=== PATIENT | male | born 1980 | race Caucasian/White ===

== ENCOUNTER 2016-08-12 16:50 | Emergency (ER) | payer OTHER ==
[~2016-08-12] VITALS: Ht 185.4 cm; Wt 96.4 kg
[~2016-08-12 16:50] MED LIST: ENDOCET 5-3251 EAC1 PO; FLEXERIL10 MG PO; NAPROSYN500 MG PO; NAPROXEN500 MG PO; NOHOMEMEDS; TESSALON200 MG PO; VICODIN 5-3001 EACH PO
[2016-08-12] MEDS ORDERED: LYRICA150 MG PO (17:22)
[2016-08-12] MEDS ORDERED: DULOXETINE HCL60 MG PO (17:22)
[2016-08-12] MEDS ORDERED: BUPROPION XL150 MG PO (17:22)
[2016-08-12] MEDS ORDERED: AMPHETAMINE SAL15 MG PO (17:23)
[2016-08-12] MEDS ORDERED: VITAMIN D31000 UNIT PO (17:23)
[2016-08-12 18:04] LABS: EOSINOPHIL (%) 4.6 % (0-5); EOSINOPHIL COUNT 0.4 K/uL (0-0.3); HEMATOCRIT 46.5 % (38.0-50.0); IMMATURE GRANULOCYTE (%) 0.4 % (0.0-0.7); INSTRUMENT ABS NEUTROPHIL CT 4.9 K/uL; LYMPHOCYTE COUNT 1.6 K/uL (1.0-2.8); MCH 30.7 PG (29.0-34.0); MCHC 33.5 G/DL (30.0-36.0); MCV 91.5 FL (86-99); MEAN PLAT.VOLUME 10.3 uM^3 (9.0-12.4); MONOCYTE (%) 13.5 % (3-12); MONOCYTE COUNT 1.1 K/uL (0-0.8); NEUTROPHIL (%) 61.1 % (45-76); NEUTROPHIL COUNT 4.9 K/uL (1.8-6.4); PLATELET COUNT 302 K/uL (156-360); RBC DIS.WIDTH-CV 12.4 % (11.8-14.6); RBC DIS.WIDTH-SD 41.8 % (39-53); RED BLOOD COUNT 5.08 M/uL (4.00-5.50); WHITE BLOOD COUNT 8.1 K/uL (4.1-10.2)
[2016-08-12 18:16] LABS: CHLORIDE 105 mEq/L (99-109); POTASSIUM 3.7 mEq/L (3.7-5.4); SODIUM 139 mEq/L (136-147)
[2016-08-12 18:17] LABS: GLUCOSE 86 mg/dL (70-99)
[2016-08-12 18:19] LABS: ANION GAP 10 MEQ/L (2-14)
[2016-08-12 18:21] LABS: GFR ESTIMATE (CALCULATED) > 59 mL/min/
[2016-08-12 18:22] LABS: UREA NITROGEN (BUN) 10 mg/dL (9-23)
[2016-08-12] MEDS ORDERED: NORCO 5/3251 TABLET PO (19:27)
[2016-08-12] MEDS ORDERED: LIDOCAINE20 MG/1 M5 PO (19:27)
[2016-08-12 20:31] VITALS: BP 122/75
== END 2016-08-12 20:32 | disposition home or self-care (01) ==
LOC: EME 16:50
PROVIDERS: Physician Assistant
DX: G89.18 Other acute postprocedural pain (principal); M54.2 Cervicalgia; R07.0 Pain in throat; Z87.891 Personal history of nicotine dependence; Z88.1 Allergy status to other antibiotic agents
CPT/HCPCS: 70491; 71020; 80048; 85025; 99281; 99285; J2270; J7040

== ENCOUNTER 2016-11-12 12:32 | Emergency (ER) | payer OTHER ==
[~2016-11-12] VITALS: Ht 185.4 cm; Wt 92.4 kg
[~2016-11-12 12:32] MED LIST changes: +AMPHETAMINE SAL15 MG PO; +BUPROPION XL150 MG PO; +DULOXETINE HCL60 MG PO; +LIDOCAINE20 MG/1 M5 PO; +LYRICA150 MG PO; +NORCO 5/3251 TABLET PO; +VITAMIN D31000 UNIT PO
[2016-11-12 14:01] LABS: HEMATOCRIT 46.2 % (38.0-50.0); MCH 30.4 PG (29.0-34.0); MCHC 33.3 G/DL (30.0-36.0); MCV 91.1 FL (86-99); PLATELET COUNT 315 K/uL (156-360); RBC DIS.WIDTH-CV 12.3 % (11.8-14.6); RED BLOOD COUNT 5.07 M/uL (4.00-5.50); WHITE BLOOD COUNT 8.5 K/uL (4.1-10.2)
[2016-11-12 14:15] LABS: CHLORIDE 106 mEq/L (99-109); POTASSIUM 4.1 mEq/L (3.7-5.4); SODIUM 141 mEq/L (136-147)
[2016-11-12 14:16] LABS: GLUCOSE 91 mg/dL (70-99)
[2016-11-12 14:18] LABS: ANION GAP 11 MEQ/L (2-14)
[2016-11-12 14:20] LABS: GFR ESTIMATE (CALCULATED) > 59 mL/min/
[2016-11-12 14:21] LABS: UREA NITROGEN (BUN) 10 mg/dL (9-23)
[2016-11-12 14:25] LABS: TROP-I INTERPRETATION NEGATIVE; TROPONIN-I < 0.01 ng/mL (0.0-0.30)
[2016-11-12 15:31] VITALS: BP 111/74
== END 2016-11-12 15:32 | disposition home or self-care (01) ==
LOC: EME 12:32
PROVIDERS: Emergency Medicine
DX: R07.89 Other chest pain (principal); Z87.891 Personal history of nicotine dependence; Z88.1 Allergy status to other antibiotic agents
CPT/HCPCS: 71010; 80048; 84484; 85027; 93005; 99281; 99284